=== PATIENT | male | born 1950 | race Caucasian/White ===

== ENCOUNTER → 2016-07-13 | Outpatient (CLI) | payer MEDICARE, BC ==
[~2016-07-13] MED LIST: ALEVE220 M1 PO; COUMADIN5 MG PO; FIBERCON625 MG PO; NORCO 10-325 TA1 TAB PO; TESTOSTERONE75 GM TOP; ZOFRAN PO
--- NOTE | ~2016-07-13 | XA30 ---
[facility] A Service of [facility] & [facility] RADIOLOGY TEXT RESULTS PATIENT: DANIEL JOSHI [facility] UNIT #: [id number] AGE: [address]: Derek Woodward MD SEX: M ORDER DR: [id number] [facility] [address] [place], [place] [address] [id number] O MR#: [id number] Acc #: [id number] NAME: DANIEL JOSHI : 1950 SEX: M STUDY DATE/TIME: 07/13/2016 13:21 UNIT: [facility] ROOM: STUDY DESCRIPTION: XA Arthrocentesis Major Joint Attending Physician: Derek Woodward M.D. Ordering Physician: Derek Woodward M.D. Primary Care Physician: Lisa Marie M.D. MEDICAL IMAGING REPORT This report is preliminary unless electronic signature is present EXAM Right hip injection with fluoroscopic guidance, 07/13/2016 HISTORY Right hip pain, chronic and progressive. PROCEDURE Informed consent was obtained. A skin site was selected with fluoroscopic guidance and marked, sterilely prepped and draped and locally anesthetized. A 22-gauge spinal needle was advanced into the joint and contrast injection eventually confirmed intraarticular needle tip position. Total fluoro time 0.4 minutes with 2 spot images. Pre-procedure pain level was recorded as 5/10 and postprocedure pain level is 0/10 following injection of 2 mL of 0.5% Marcaine and 40 mg of Depo-Medrol. There were no complications. IMPRESSION Technically successful right hip injection with Depo-Medrol and Marcaine with a complete resolution of right hip pain immediately postprocedure. Dictated by... Hari Rodriguez M.D. THIS IS AN ELECTRONICALLY VERIFIED REPORT Hari Rodriguez M.D. at 07/14/2016 2:58 PM FLACO/stephani TD: 07/14/2016 08:17 JOB #: [id number] MEDICAL IMAGING REPORT Page 1 of 1 COPY
== END | disposition home or self-care (01) ==
LOC: CIVR 12:57
PROC: 3E0U33Z Introduction of Anti-inflammatory into Joints, Percutaneous Approach (ICD-10-PCS; principal; 2016-07-13)
PROC: 3E0U3BZ Introduction of Anesthetic Agent into Joints, Percutaneous Approach (ICD-10-PCS; 2016-07-13)
DX: M16.11 Unilateral primary osteoarthritis, right hip (principal)
CPT/HCPCS: 77002; J1030; Q9966